=== PATIENT | female | born 1950 | race Caucasian/White ===

== ENCOUNTER 2020-01-06 06:50 | Outpatient (CLI) | payer MEDICARE, OTHER | END 2020-01-06 23:59 | disposition home or self-care (01) | LOC: LAB 06:50 | PROVIDERS: ATTEND Anesthesiology Pain Medicine | DX: Z01.812 Encounter for preprocedural laboratory examination (principal); Z20.828 Contact with and (suspected) exposure to other viral communicable diseases ==

== ENCOUNTER 2020-01-08 06:06 | Day surgery (SDC) | payer MEDICARE, OTHER ==
[2020-01-08] MEDS ORDERED: PROPOFOL 200 MG/20 ML BOTTLE IV ONE (06:07)
[2020-01-08] MEDS ORDERED: LIDOCAINE-MPF 2% 5 ML VIAL MC ONE (06:07)
[2020-01-08] MEDS ORDERED: TRIAMCINOLONE ACETONIDE 40 MG/1 ML VIAL ONE (07:08)
[2020-01-08] MEDS ORDERED: BUPIVACAINE 0.25% 30 ML VIAL ONE (07:09)
[2020-01-08] MEDS ORDERED: LIDOCAINE HCL 1% 20 ML VIAL ONE (07:09)
[2020-01-08] MEDS ORDERED: IOHEXOL 300MG/ML 50 ML VIAL ONE (07:09)
== END 2020-01-08 10:15 | disposition home or self-care (01) ==
LOC: DS 06:06
PROVIDERS: ATTEND Anesthesiology Pain Medicine
DX: M47.816 Spondylosis without myelopathy or radiculopathy, lumbar region (principal); M43.06 Spondylolysis, lumbar region; M46.06 Spinal enthesopathy, lumbar region; E78.5 Hyperlipidemia, unspecified; M19.90 Unspecified osteoarthritis, unspecified site; Z87.440 Personal history of urinary (tract) infections; Z79.899 Other long term (current) drug therapy; Z88.2 Allergy status to sulfonamides; Z88.8 Allergy status to other drugs, medicaments and biological substances; Z90.710 Acquired absence of both cervix and uterus; Z98.890 Other specified postprocedural states
CPT/HCPCS: 70030-TC; A4663; J3301; J3490; Q9967

== ENCOUNTER 2020-03-30 07:03 | Outpatient (CLI) | payer MEDICARE, OTHER | END 2020-03-30 23:59 | disposition home or self-care (01) | LOC: LAB 07:03 | PROVIDERS: ATTEND Anesthesiology Pain Medicine | DX: Z01.812 Encounter for preprocedural laboratory examination (principal); Z20.828 Contact with and (suspected) exposure to other viral communicable diseases ==

== ENCOUNTER 2020-03-31 06:51 | Day surgery (SDC) | payer MEDICARE, OTHER ==
[2020-03-31] MEDS ORDERED: PROPOFOL 200 MG/20 ML BOTTLE IV ONE (06:52)
[2020-03-31] MEDS ORDERED: IOHEXOL 300MG/ML 50 ML VIAL ONE (07:16)
[2020-03-31] MEDS ORDERED: BUPIVACAINE 0.25% 30 ML VIAL ONE (07:16)
[2020-03-31] MEDS ORDERED: LIDOCAINE HCL-MPF 1% 5 ML VIAL ONE (07:24)
== END 2020-03-31 10:00 | disposition home or self-care (01) ==
LOC: DS 06:51
PROVIDERS: ATTEND Anesthesiology Pain Medicine
DX: M47.26 Other spondylosis with radiculopathy, lumbar region (principal); E78.00 Pure hypercholesterolemia, unspecified; M19.90 Unspecified osteoarthritis, unspecified site; Z87.440 Personal history of urinary (tract) infections; Z79.899 Other long term (current) drug therapy; Z98.890 Other specified postprocedural states; Z88.2 Allergy status to sulfonamides; Z88.8 Allergy status to other drugs, medicaments and biological substances
CPT/HCPCS: 64493; 72100; J3490 ×2; J7120; A4663; Q9967

== ENCOUNTER 2024-05-27 06:59 | Day surgery (SDC) | payer MEDICARE, OTHER ==
[2024-05-27] MEDS ORDERED: DEXAMETHASONE SOD PHOSPHATE 10 MG INJ ONE (07:31)
[2024-05-27] MEDS ORDERED: DEXAMETHASONE SOD PHOSPHATE 4 MG INJ ONE (07:31)
[2024-05-27] MEDS ORDERED: BUPIVACAINE 0.25% 30 ML VIAL ONE (07:32)
[2024-05-27] MEDS ORDERED: LIDOCAINE HCL 1% 20 ML VIAL ONE (07:32)
[2024-05-27 07:40] LABS: *BILIRUBIN,URIN NEGATIVE (NEGATIVE); *CLARITY,URINE CLEAR (CLEAR); *COLOR,URINE YELLOW (YELLOW); *KETONES,URINE NEGATIVE (NEGATIVE); *PROTEIN,URINE NEGATIVE (NEGATIVE); *UROBILINOGEN,URINE 0.2 E.U./dl (NORMAL); BASOPHILS # (AUTO) 0.1 K/UL (0.0-0.2); EOSINOPHILS # (AUTO) 0.1 K/uL (0.0-0.7); EOSINOPHILS % (AUTO) 1.7 % (0.0-7.0); HEMATOCRIT 40.2 % (31.2-41.9); HEMOGLOBIN 13.5 g/dL (10.9-14.3); LEUKOCYTE ESTERASE ,URINE NEGATIVE (NEGATIVE); LYMPHOCYTES # (AUTO) 2.2 K/uL (0.8-4.8); LYMPHOCYTES % (AUTO) 35.2 % (20.5-51.5); MEAN CORPUSCULAR HEMOGLOBIN 26.7 uug (24.7-32.8); MEAN CORPUSCULAR HGB CONC 34 g/dL (32.3-35.6); MEAN CORPUSCULAR VOLUME 79.5 fL (75.5-95.3); MONOCYTES # (AUTO) 0.5 K/uL (0.1-1.30); MONOCYTES % (AUTO) 8.2 % (0.0-11.0); NEUTROPHILS # (AUTO) 3.3 K/uL (1.8-8.9); NEUTROPHILS % (AUTO) 53.9 % (38.5-71.5); NITRITE, URINE NEGATIVE (NEGATIVE); PH,URINE 5.5 (5.0-8.0); PLATELET COUNT (AUTO) 253 K/uL (179-408); RED BLOOD CELL COUNT(AUTO) 5.06 MIL/uL (3.63-4.92); RED CELL DISTRIBUTION WIDTH 12.7 % (12.3-17.7); UGLUCOSE NEGATIVE (NEGATIVE); WHITE BLOOD COUNT (AUTO) 6.2 K/uL (3.8-11.8)
[2024-05-27 07:45] LABS: DIFFERENTIAL COMMENT 1
[2024-05-27 07:48] LABS: *BLOOD, URINE TRACE (NEGATIVE); BACTERIA,URINE FEW /HPF (NONE SEEN); SQUAMOUS EPITHELIAL CELL,UR FEW /HPF (NONE SEEN); WBC,URINE 0-3 /HPF (0-3)
[2024-05-27 07:49] LABS: CALCIUM 8.9 mg/dL (8.5-10.1); CARBON DIOXIDE 32 mmol/L (21-32); CHLORIDE 106 mmol/L (98-107); CREATININE 0.5 mg/dL (0.6-1.3); GLUCOSE 104 mg/dL (74-106); POTASSIUM 3.5 mmol/L (3.5-5.1); SODIUM SERUM 144 mmol/L (136-145); UREA NITROGEN, BLOOD 16 mg/dL (7-18)
[2024-05-27] MEDS ORDERED: PROPOFOL 200 MG/20 ML BOTTLE ONE (09:00)
[2024-05-27 09:50] VITALS: TEMP 97.4
== END 2024-05-27 09:54 | disposition home or self-care (01) ==
LOC: DS 06:59
PROVIDERS: ATTEND Anesthesiology Pain Medicine
DX: M12.531 Traumatic arthropathy, right wrist (principal); I10 Essential (primary) hypertension; E78.5 Hyperlipidemia, unspecified; I70.0 Atherosclerosis of aorta; M81.0 Age-related osteoporosis without current pathological fracture; Z88.1 Allergy status to other antibiotic agents; Z88.2 Allergy status to sulfonamides; Z79.899 Other long term (current) drug therapy; Z98.890 Other specified postprocedural states
CPT/HCPCS: 20605; 36415; 71045; 77002; 80048; 81001; 85025; 85730; J1100; J3490; J7120; A4663